=== PATIENT | male | born 1995 ===

== ENCOUNTER 2019-01-22 23:28 | Emergency (ER) | payer SELFPAY ==
[2019-01-22 23:39] VITALS: BP 125/74; PULSE 64; RESP 20; TEMP 98.1; O2SAT 99
[2019-01-23] MEDS ORDERED: Tetracaine 0.5% Ophth (OR ONLY) ONE (00:01)
[2019-01-23] MEDS ORDERED: Tobramycin 0.3% OPH OINT OD STA (00:40)
[2019-01-23] MEDS ORDERED: Tobramycin 0.3% OPH OINT ONE (00:47)
--- NOTE | 2019-01-23 00:57 | C.PDOC ---
History Of Present Illness 23 year old male presents to the ED c/o FB sensation to his right eye. Patient reports that today while at work he was grinding metal, states a piece of it flew into his right eye. Patient irrigated his eye, however still feel FB sensation. Patient denies headache, visual changes, nausea, vomit, rash. Time Seen by Provider: 01/22/19 23:45 Chief Complaint (Nursing): ENT Problem History Per: Patient History/Exam Limitations: no limitations Onset/Duration Of Symptoms: Hrs Current Symptoms Are (Timing): Still Present Quality: "Pain" Associated Symptoms: Pain, FB Sensation Recent travel outside of the [place]: No Additional History Per: Patient Past Medical History Reviewed: Historical Data, Nursing Documentation, Vital Signs Vital Signs: Last Vital Signs Temp 98.1 F 01/22/19 23:33 Pulse 64 01/22/19 23:33 Resp 20 01/22/19 23:33 BP 125/74 01/22/19 23:33 Pulse Ox 99 01/22/19 23:33 - Medical History PMH: No Chronic Diseases Surgical History: No Surg Hx Family History: States: Unknown Family Hx - Social History Hx Alcohol Use: No Hx Substance Use: No - Immunization History Hx Tetanus Toxoid Vaccination: No Hx Influenza Vaccination: No Hx Pneumococcal Vaccination: No Review Of Systems Constitutional: Negative for: Fever, Chills Eyes: Positive for: Pain, Redness ENT: Negative for: Nose Discharge, Nose Congestion Gastrointestinal: Negative for: Nausea, Vomiting Skin: Negative for: Rash Neurological: Negative for: Headache Physical Exam - Physical Exam Appears: Non-toxic, No Acute Distress Skin: Normal Color, Warm, Dry Head: Atraumatic, Normacephalic Eye(s): bilateral: PERRL (visual acuity 20/20), EOMI, right: Other (small FB seen right cornea, small nodule nasal cantus right side, no subconjuctival hemorrhage. ), left: Normal Inspection Oral Mucosa: Moist Neck: Normal ROM, Supple Extremity: Normal ROM Neurological/Psych: Oriented x3, Normal Speech, Normal Cognition Gait: Steady ED Course And Treatment O2 Sat by Pulse Oximetry: 99 (ON RA) Pulse Ox Interpretation: Normal Progress Note: Tetracaine, small applicator was used to scape and removed FB from right cornea. Small punctate abrasion to right cornea was seen after using fluorescein stain. Tobrex ointment was applied to the patient's right eye, given the rest to use ta home for 2 day 3 times a day. Patient was advised to follow up opthalmologist. Disposition Counseled Patient/Family Regarding: Diagnosis, Need For Followup, Rx Given - Disposition Referrals: [facility] [Outside] Disposition: HOME/ ROUTINE Disposition Time: 00:55 Condition: STABLE Additional Instructions: Apply ointment to affected eye 2 x daily for 3 days Flush eye with saline Follow up with EYE doctor as needed on friday Return to ER if worse Instructions: Corneal Abrasion (DC), Foreign Body in Eye (DC) Forms: [employer] (Malawian) - Clinical Impression Clinical Impression: Foreign body of right eye, Corneal abrasion, right - PA / [employer] / Resident Statement MD/DO has reviewed & agrees with the documentation as recorded. - Scribe Statement The provider has reviewed the documentation as recorded by the Scribe Nomi Manzo All medical record entries made by the Scribe were at my direction and personally dictated by me. I have reviewed the chart and agree that the record accurately reflects my personal performance of the history, physical exam, medical decision making, and the department course for this patient. I have also personally directed, reviewed, and agree with the discharge instructions and disposition.
== END 2019-01-23 01:00 | disposition home or self-care (01) ==
LOC: C.ER 23:28
DX: T15.01XA Foreign body in cornea, right eye, initial encounter (principal); W22.8XXA Striking against or struck by other objects, initial encounter; Y92.89 Other specified places as the place of occurrence of the external cause; Y99.0 Civilian activity done for income or pay